=== PATIENT | female | born 1955 | race Caucasian/White ===

== ENCOUNTER 2020-07-23 17:44 | Emergency (ER) | payer OTHER ==
[~2020-07-23] VITALS: Ht 162.6 cm; Wt 82.1 kg
[2020-07-23] MEDS ORDERED: Prinivil10 MG PO (19:34)
[2020-07-23] MEDS ORDERED: SERT25 PO (19:34)
[2020-07-23] MEDS ORDERED: EUTHYROX125 MCG PO (19:34)
[2020-07-23 20:25] LABS: Calcium, Ionized (POC) 1.18 mmol/L (1.10-1.46); Chloride (POC) 105 mmol/L (98-108); Creatinine (POC) 0.8 mg/dL (0.6-1.0); Glucose (ISTAT POC) 112 mg/dL (70-99); Hemoglobin (POC) 13.6 g/dL (12.0-16.0); Potassium (POC) 3.8 mmol/L (3.5-5.5); Sodium (POC) 141 mmol/L (135-148); Total CO2 (POC) 25 mmol/L (21-32)
[2020-07-23] MEDS ORDERED: Robaxin-750750 MG PO (21:21)
[2020-07-23] MEDS ORDERED: TRAM50 PO (21:21)
== END 2020-07-23 21:43 | disposition home or self-care (01) ==
LOC: ER 17:44
PROVIDERS: Emergency Medicine
DX: S39.012A Strain of muscle, fascia and tendon of lower back, initial encounter (principal); Z79.899 Other long term (current) drug therapy; X50.1XXA Overexertion from prolonged static or awkward postures, initial encounter
CPT/HCPCS: 36415; 71260; 80047; 85014; 96374-59; 99284-25; J1885; Q9967